=== PATIENT | female | born 1990 | race Caucasian/White ===

== ENCOUNTER 2025-03-01 21:56 | Emergency (ER) | payer BC, SELFPAY ==
[2025-03-01 22:00] VITALS: BP 125/80
[2025-03-01 22:21] LABS: Hematocrit 40.8 % (37.0-47.0); Hemoglobin 13.7 g/dL (12.0-16.0); Mean Corp Hgb Conc. 33.6 g/dL (33.0-37.0); Mean Corpuscular Volume 85.4 fL (81.0-99.0); Platelet Count 188 10^3/uL (130-400); Red Cell Dist. Width 13.3 % (11.5-14.5)
[2025-03-01 22:42] LABS: ALT (SGPT) 20 U/L (0-35); AST (SGOT) 31 U/L (14-36); Albumin 4.2 g/dl (3.5-5.0); Alkaline Phosphatase 37 U/L (38-126); Blood Urea Nitrogen 9 mg/dl (7-17); Calcium 8.3 mg/dl (8.4-10.2); Carbon Dioxide 28 mmol/L (22-30); Chloride 104 mmol/L (98-107); Glucose 85 mg/dl (70-99); Potassium 4.4 mmol/L (3.5-5.1); Sodium 137 mmol/L (135-145); Total Protein 6.9 g/dl (6.3-8.2); eGFR > 60.00
[2025-03-01 22:47] LABS: Nucleated Red Blood Cells % 0 %
[2025-03-02 00:58] VITALS: BP 124/78; BMI 27.3
--- NOTE | 2025-03-02 01:18 | ED.GENMED ---
History of Present Illness
<Ricci Akins MD, Resident - Last Filed: 03/02/25 03:29>
General
Chief Complaint: Skin Problem
Source: patient
Exam Limitations: none
Time Seen by Provider: 03/02/25 00:49
History of Present Illness
History of Present Illness:
Patient is complaining of a rash which she believes is hives since 3 days, said it started Monday of small red dots then on erupted onto her legs chest arm back and then finally her face. Associated with bodyaches and fatigue, diarrhea,
headache, chills. She was in the [place] last week and did not experience any similar symptoms there. No bites. She has had hives for most of her life and was diagnosed with chronic urticaria which is aggravated during temperature changes.No
shortness of breath, dysphagia, throat closing.
Past History
<Ricci Akins MD, Resident - Last Filed: 03/02/25 03:29>
Past History
ED Past Medical History: Asthma (never intubated)
ED Past Surgical History: None
Social History
Tobacco: Non-smoker
Personal:
Living: with family
Phy Exam
<Ricci Akins MD, Resident - Last Filed: 03/02/25 03:29>
General Physical Exam
General Presentation: well appearing and no apparent distress
Cardiovascular Exam
Cardiovascular Exam: regular rate/rhythm and no edema
Pulmonary Exam
Pulmonary Exam: lungs clear and no respiratory distress
Gastrointestinal Exam
Gastrointestinal Exam: normal bowel sounds, non tender, soft and non distended
Neurological Exam
Neurological Exam: alert and oriented x3
Skin Exam
Skin Exam: normal color, warm/dry and other (erythematous blanching coalescing wheals present on legs, arms, chest, face, shoulder , abdomen bilaterally. )
Course
<Ricci Akins MD, Resident - Last Filed: 03/02/25 03:29>
Orders/Labs/Results
Orders:
Orders
03/01/25 22:11
C-Reactive Protein Urgent
Comment: ADD ON
Complete Blood Count/With Diff Urgent
Comprehensive Metabolic Panel Urgent
Erythrocyte Sed Rate Urgent
Comment: ADD ON
Lyme Progressive Urgent
03/02/25 02:14
Acetaminophen [Tylenol] 1,000 mg PO NOW STA
03/02/25 02:22
Diphenhydramine [Benadryl] 25 mg PO NOW STA
03/02/25 02:45
Add On- LAB Urgent
Tests Added?: crp, sed rate
Abnormal Lab Results
03/01/25
22:11
WBC 2.5 L 10^3/uL
(4.8-10.8)
Absolute Neuts (auto) 0.8 L* 10^3/uL
(1.4-6.5)
Neutrophils % 31.3 L %
(42.2-75.2)
Monocytes % 12.6 H %
(1.7-9.3)
Eosinophils % 9.5 H %
(0-6)
Calcium 8.3 L mg/dl
(8.4-10.2)
Alkaline Phosphatase 37 L U/L
(38-126)
03/01/25 22:11
03/01/25 22:11
Vital Signs
Initial and Last Documented VS:
Initial Vital Signs
Temp Pulse Resp BP Pulse Ox
98.5 F 85 16 125/80 96
03/01/25 22:00 03/01/25 22:00 03/01/25 22:00 03/01/25 22:00 03/01/25 22:00
Last Documented Vital Signs
Temp Pulse Resp BP Pulse Ox
98.5 F 85 16 124/78 100
03/01/25 22:00 03/02/25 00:58 03/02/25 00:58 03/02/25 00:58 03/02/25 01:18
<Ariel Escalante, DO - Last Filed: 03/02/25 07:44>
Orders/Labs/Results
Orders:
Orders
03/01/25 22:11
C-Reactive Protein Urgent
Comment: ADD ON
Complete Blood Count/With Diff Urgent
Comprehensive Metabolic Panel Urgent
Erythrocyte Sed Rate Urgent
Comment: ADD ON
Lyme Progressive Urgent
03/02/25 02:14
Acetaminophen [Tylenol] 1,000 mg PO NOW STA
03/02/25 02:22
Diphenhydramine [Benadryl] 25 mg PO NOW STA
03/02/25 02:45
Add On- LAB Urgent
Tests Added?: crp, sed rate
Abnormal Lab Results
03/01/25
22:11
WBC 2.5 L 10^3/uL
(4.8-10.8)
Absolute Neuts (auto) 0.8 L* 10^3/uL
(1.4-6.5)
Neutrophils % 31.3 L %
(42.2-75.2)
Monocytes % 12.6 H %
(1.7-9.3)
Eosinophils % 9.5 H %
(0-6)
Calcium 8.3 L mg/dl
(8.4-10.2)
Alkaline Phosphatase 37 L U/L
(38-126)
03/01/25 22:11
03/01/25 22:11
Vital Signs
Initial and Last Documented VS:
Initial Vital Signs
Temp Pulse Resp BP Pulse Ox
98.5 F 85 16 125/80 96
03/01/25 22:00 03/01/25 22:00 03/01/25 22:00 03/01/25 22:00 03/01/25 22:00
Last Documented Vital Signs
Temp Pulse Resp BP Pulse Ox
98.5 F 85 16 124/78 100
03/01/25 22:00 03/02/25 00:58 03/02/25 00:58 03/02/25 00:58 03/02/25 01:18
<Ricci Akins MD, Resident - Last Filed: 03/02/25 03:29>
MDM/Problems Addressed
Differential Diagnosis Includes:
urticarial rash, tick borne disease ( RMSF, Lyme), viral illness like (CMV, EBV, covid), drug induced urticaria
MDM/Problems Addressed:
- Vitals stable and patient afebrile
- CBC shows decreased wbc of 2.5, and absolute neutrophil count of 0.8, consulted hem/onc who believe it is a viral cause
- CMP unremarkable
- Lyme screen pending
- CRP pending
- Ordered tylenol for pain
Discharged patient home, ordered patient 25 mg po benadryl to be taken after she gets home then q6 hourly thereafter, Ordered Epipen which is to be used if there is difficulty breathing, swelling of lips tongue throat, unstable vital signs,
instructions to visit PCP in 5 days time to recheck labs
<Ricci Akins MD, Resident - Last Filed: 03/02/25 03:29>
*Pulse Oximetry
SaO2: 100
Oxygen Mode of Delivery: Room air
Patient hypoxic: no
*Critical Care Note
Total Time (30-74mins, 75-104mins- exclusive of procedures): Not Applicable
ED Attending Note
<Ricci Akins MD, Resident - Last Filed: 03/02/25 03:29>
-
Portions of this chart may have been created with voice recognition software.� Occasional wrong word or��sound alike� substitutions may have occurred due to the inherent limitations of voice recognition software.
<Ariel Escalante, DO - Last Filed: 03/02/25 07:44>
ED Attending Note
Patient seen and examined by attending physician: Yes
ED Attending Note:
Note:
CHIEF COMPLAINT(S)
Generalized body aches, skin discomfort upon touch, itchiness, occasional diarrhea, and loss of appetite.
HISTORY OF PRESENT ILLNESS
The patient is a 35-year-old female presenting with generalized body aches, stating, �Im like rough pretty much all over.� She reports experiencing skin tenderness, describing it as �my skin hurts literally to touch.� The patient notes an itchy
sensation, particularly troubling, and occurring over the past three days. She mentions a lack of appetite and episodes of diarrhea following meals, but denies fever, stating instead that he feels �cold.� Additionally, the patient expresses
experiencing significant fatigue and body aches.
The patient has a history of asthma and recurrent hives, typically in response to factors like certain fabrics or temperature changes. Notably, he describes a recent exposure to bromine in a hot tub at a cousins house a week prior, which initially
caused skin dryness but was believed to be resolved until the emergence of current symptoms. Other family members experienced temporary dry skin after the hot tub exposure but have since recovered, while the patients symptoms progressed.
The patient expresses concern after noticing the rash spreading to his neck and face, prompting the emergency visit. He has planned a primary care appointment and communicated these issues to his doctor, Dr. Crystal at [facility]. The patient
also points out a familial history of autoimmune conditions, including thyroid disorders in siblings and fibromyalgia and cirrhosis in his mother.
EXTERNAL RECORDS REVIEWED
Review of laboratory work shows neutrophil counts slightly low, raising considerations for an underlying infection or autoimmune process. The patient mentions previous normal blood results from June with no significant findings according to his
physician.
SOCIAL DETERMINANTS AFFECTING HEALTH
The patient denies any recent changes in household chemicals or diet, maintaining consistent use of familiar cleaning products without hazardous exposures. 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
REVIEW OF SYSTEMS
- General: Reports feeling generally unwell with body aches and fatigue.
- Skin: Experience of skin tenderness, generalized itchiness, and a sensation of discomfort upon touch.
- Gastrointestinal: Loss of appetite and episodes of diarrhea post meals.
- Musculoskeletal: Generalized body aches and stiffness.
PHYSICAL EXAM
General: Alert, no acute distress.
Skin: Warm, dry.
Head: Normocephalic, atraumatic.
Neck: Supple, trachea midline.
Eyes, Ears, Nose, Mouth and Throat: Oral mucosa moist.
Cardiovascular: Normal peripheral perfusion, No edema.
Respiratory: Respirations are non-labored.
Gastrointestinal: Abdomen nondistended.
Back: Normal range of motion, Normal alignment.
Musculoskeletal: Normal range of motion, normal strength.
Neurological: Alert and oriented to person, place, time, and situation, No focal neurological deficit observed.
Psychiatric: Cooperative, appropriate mood and affect.
PROBLEM LIST
- Acute: Generalized body aches, skin hypersensitivity, itchy rash, and possible autoimmune reaction.
- Chronic: Recurrent hives, asthma.
PLAN
- Consult with a development professional regarding the low neutrophil counts and potential connection to the rash.
- Rule out an autoimmune etiology and consider autoimmune screenings due to family history and patients concerns.
- Monitor for possible allergic reactions or exacerbation of pre-existing conditions.
DIFFERENTIAL DIAGNOSIS
The Differential Diagnosis includes, in no particular order and is not limited to:
1. Contact dermatitis
2. Viral exanthema
3. Drug reaction or allergy
4. Systemic lupus erythematosus
5. Thyroid dysfunction
6. Fibromyalgia flare
7. Food allergy or intolerance
8. Chronic urticaria
9. Dermatitis herpetiformis
10. Lymphoproliferative disorder
CARE-UPDATE
03/02/25 - 02:59
Discussed with development professional Eliceo Arceo who suspects the condition is due to a terminal illness. Recommends close follow-up with the family doctor to repeat lab work in one week.
Disposition:
SUMMARY OF ENCOUNTER
The patient, a 35-year-old female, presented with generalized body aches, skin discomfort upon touch, itchiness, occasional diarrhea, and loss of appetite. The symptoms were suspected to be associated with a potential autoimmune reaction or a viral
process. After reviewing lab results and consulting with a development professional, it was concluded that the condition might be viral in nature. The patients symptoms were managed conservatively in the emergency department.
DISPOSITION
The patient is to be discharged home with follow-up plans in place.
MANAGEMENT OF THE PATIENTS CARE WAS DISCUSSED WITH
Consulted with development professional Eliceo Arceo, who suspects viral etiology and recommended follow-up with a family doctor for repeat laboratory work.
PLAN
The patient is advised to follow up with their family doctor for repeat lab work to monitor the condition. The development professional has recommended this follow-up to further investigate the possibility of a viral process underlying the symptoms.
INDEPENDENT REVIEW OF LABS AND INTERPRETATION OF TESTS
My independent review of current labs shows neutrophil counts slightly low, which may indicate an underlying infection or autoimmune process.
FOLLOW-UP INSTRUCTIONS
The patient has been advised to schedule a follow-up visit with their primary care doctor to repeat lab work in a week.
MEDICAL DECISION MAKING
1. Number and Complexity of Problems Addressed:
Chronic conditions affecting care include asthma, recurrent hives, and the current differential diagnosis consisting of potential autoimmune reactions or a viral etiology.
2. Data:
Category 1
Non-emergency department records reviewed: External records included examination of previous normal blood results from June.
Clinical information was obtained from development professional Eliceo Arceo.
Category 3
Discussion of management with development professional regarding the likelihood of a viral condition affecting the patient.
3. Risk:
Consideration of Admission/Observation: Escalation of care including admission was considered given the complexity and risk of the patients presenting complaint and exam findings. However, ultimately I feel the patient is safe for outpatient
management with close follow-up. Reasoning: Work-up did not reveal any acute life/organ-threatening processes, patients symptoms well controlled upon reevaluation, reexamination is reassuring, patient agreeable with discharge, reliable for follow-up.
DIAGNOSIS
Suspected viral infection.
Hyponatremia - E87.1
Discharge Plan
Departure
Patient Disposition: Home (Routine Discharge)
Date of Disposition: 03/02/25
Time of Disposition: 03:23
Patient with high blood pressure during this ER visit?: No
Condition: Fair
Discharge Problem:
Urticaria
Instructions: Viral skin rash (DC), Allergic reaction - ED (DC)
Prescriptions:
New
epinephrine [EpiPen] 0.3 mg/0.3 mL auto-injector
0.3 mg IM .STAT PRN (Reason: hypersensitivity reaction) Qty: 1 0RF
diphenhydramine HCl [Benadryl] 25 mg capsule
25 mg PO TID PRN (Reason: allergic reaction) Qty: 30 0RF
No Action
cetirizine 10 MG tablet
10 mg PO DAILY
albuterol sulfate [Albuterol Sulfate HFA] 18 GM HFA aerosol inhaler
8.5 gm inhalation PRN PRN (Reason: asthma)
cyclobenzaprine 10 MG tablet
10 mg PO TIDPRN PRN (Reason: muscle spasms/tightness) Qty: 12 0RF
prednisone 20 MG tablet
40 mg PO DAILY Qty: 10 0RF
ipratropium-albuterol 3 ML solution for nebulization
3 ml inhalation PRN PRN (Reason: wheezing) Qty: 25 0RF
Referrals:
Ana Osman PA-C [Non-Admitting Privileges] - Follow up in 5-7 days
Activity Restrictions/Additional Instructions:
You were evaluated for urticaria with myalgias and diarrhea. CBC showed absolute neutrophil count of 0.8 which is low. Vitals are stable and patient is afebrile. CRP and Lyme titre still pending. Ordered Epipen which is to be used if there is
difficulty breathing, swelling of lips tongue throat, unstable vital signs. Take Benadryl every 6 hours. Please f/u PCP within 5 days for further evaluation and repeat labs.
1. Please schedule a follow up appointment as directed. Call first thing tomorrow morning to make an appointment.
2. If indicated, please take your medications as instructed and indicated on discharge paperwork.
3. If any of your symptoms do not improve, or persist, or become more severe within 6-12 hours, please return to the emergency department for further care.
4. Please return to the emergency department if you develop a headache, neck pain/stiffness, fever greater than 100.4F, chest pain, shortness of breath, persistent nausea, vomiting, slurred speech, difficulty walking, numbness/tingling, weakness,
signs of infection or any other symptoms that are worrisome to you.
Please call [phone] if you have any questions
Interventions
Interventions:
*Risk Screen - Suicide Last Done: 03/01/25 22:03
*General Assessment Last Done: 03/01/25 22:03
*Neglect/Abuse Screening Last Done: 03/01/25 22:03
*ED COVID-19 Vaccine History Last Done: 03/01/25 22:03
*ED Influenza Vaccine History Last Done: 03/01/25 22:03
*Nursing Disposition Last Done: 03/02/25 03:57
ED-Skin Assessment Last Done: 03/02/25 00:58
Discharge Date and Time
Discharge Date/Time: 03/02/25 03:57
Print Language: GREENLANDIC
[2025-03-02] MEDS: TYLENOL 1000 MG PO (02:18)
[2025-03-02 03:29] LABS: C-Reactive Protein < 5.00 mg/L (0.0-10.00)
[2025-03-03 14:50] LABS: Lyme Antibody Screen, EIA Negative (Negative)
== END 2025-03-02 03:57 | disposition home or self-care (01) ==
LOC: EMR 21:56
PROVIDERS: Emergency Medicine; EMERGENCY PHYSICIAN Student in an Organized Health Care Education/Training Program
DX: L50.9 Urticaria, unspecified (principal); D72.819 Decreased white blood cell count, unspecified; J45.909 Unspecified asthma, uncomplicated
CPT/HCPCS: 99283; 80053; 85025; 85652; 86140; 86618